=== PATIENT | male | born 1950 | race Caucasian/White ===

== ENCOUNTER 2017-01-29 10:40 | Emergency (ER) | payer MEDICARE, OTHER ==
[~2017-01-29] VITALS: Ht 182.9 cm; Wt 83.9 kg
== END 2017-01-29 12:10 | disposition home or self-care (01) ==
LOC: ED 10:40
DX: S68.127A Partial traumatic metacarpophalangeal amputation of left little finger, initial encounter (principal); Z85.47 Personal history of malignant neoplasm of testis; Z85.038 Personal history of other malignant neoplasm of large intestine; Z85.828 Personal history of other malignant neoplasm of skin; Z90.49 Acquired absence of other specified parts of digestive tract; Z88.8 Allergy status to other drugs, medicaments and biological substances; W27.0XXA Contact with workbench tool, initial encounter
CPT/HCPCS: 90471; 90715; 99282